=== PATIENT | female | born 1965 | race Caucasian/White ===

== ENCOUNTER 2019-07-12 04:35 | Emergency (ER) | payer MEDICAID, OTHER ==
[~2019-07-12] VITALS: Ht 167.6 cm; Wt 95.3 kg
[2019-07-12 04:35] VITALS: BP 97/65
[2019-07-12] MEDS ORDERED: NACL 0.9% 1,000 ML IV ONE (04:50)
--- NOTE | 2019-07-12 05:02 | NUR ---
54 y/o female x/o vaginal bleeding a yesterday at 1100. pt states shes gone through 20 pads since the bleeding started. pt is now using a towel d/t uncontrolled vaginal bleeding. pt is diaphoretic, dizzy, and unsteady gait. pt also states her lmp was 2 months ago and thought she was hitting menopause. vss. pt skin is cool to touch. a&o x4. no resp distress ntoed or any distress noted. nka. no pmh.
[2019-07-12 05:09] LABS: BASOPHILS % (AUTO) 0.3 % (0.0-2.0); EOSINOPHILS # (AUTO) 0.2 K/uL (0-0.4); EOSINOPHILS % (AUTO) 2.3 % (0.0-4.0); HEMATOCRIT 35.4 % (36-48); HEMOGLOBIN 11.6 g/dL (12.0-16.0); LYMPHOCYTES # (AUTO) 2.9 K/uL (2.5-16.5); LYMPHOCYTES % (AUTO) 43.2 % (20.5-51.1); MEAN CORPUSCULAR HEMOGLOBIN 28 pg (27-31); MEAN CORPUSCULAR HGB CONC 33 g/dL (33-37); MONOCYTES # (AUTO) 0.4 K/uL (0.8-1.0); MONOCYTES % (AUTO) 6.2 % (1.7-9.3); NEUTROPHILS # (AUTO) 3.2 K/uL (1.8-7.7); PLATELET COUNT (AUTO) 183 K/uL (140-450); RED BLOOD CELL COUNT(AUTO) 4.16 MIL/uL (4.20-5.40); RED CELL DISTRIBUTION WIDTH 16.6 % (11.6-13.7); WHITE BLOOD COUNT (AUTO) 6.7 K/uL (4.8-10.8)
[2019-07-12 05:21] LABS: ALBUMIN 3.4 g/dL (3.4-5.0); ANION GAP 14.2 (8-16); CARBON DIOXIDE 25.5 mmol/L (21-32); CREATININE 0.9 mg/dL (0.6-1.3); POTASSIUM 3.7 mmol/L (3.5-5.1); TOTAL BILIRUBIN 0.2 mg/dL (0.0-1.0)
[2019-07-12 05:42] LABS: APPEARANCE,URINE CLOUDY (CLEAR); BILIRUBIN,URINE NEGATIVE (NEGATIVE); BLOOD, URINE 3+ (NEGATIVE); COLOR,URINE RED (YELLOW); LEUKOCYTE ESTERASE ,URINE TRACE (NEGATIVE); NITRITE, URINE NEGATIVE (NEGATIVE); PH,URINE 6.5 (5.0-9.0); UGLUCOSE NEGATIVE (NEGATIVE)
--- NOTE | 2019-07-12 05:44 | NUR ---
US AT BEDSIDE.
[2019-07-12 06:12] LABS: RBC,URINE TOO NUMEROUS TO COUN /HPF (0-5)
[2019-07-12 06:13] LABS: WBC,URINE 0-5 /HPF (0-5)
[2019-07-12 06:56] VITALS: BP 97/65
--- NOTE | 2019-07-12 06:56 | NUR ---
Patient discharged with v/s stable. Written and verbal after care instructions given and explained. Patient alert, oriented and verbalized understanding of instructions. Ambulatory with steady gait. All questions addressed prior to discharge. ID band removed. Patient advised to follow up with PMD. Rx of MEDROXYPROGESTERONE given. Patient educated on indication of medication including possible reaction and side effects. Opportunity to ask questions provided and answered.
== END 2019-07-12 06:56 | disposition home or self-care (01) ==
LOC: MED 04:35
DX: D25.9 Leiomyoma of uterus, unspecified (principal); R42 Dizziness and giddiness
CPT/HCPCS: 36415; 76856; 80053; 81001; 84702; 85025; 86886; 86900; 86901; 96360; 99284; J7030; Q0092